=== PATIENT | male | born 1940 | race Caucasian/White ===

== ENCOUNTER 2017-07-12 19:59 | Emergency (ER) | payer MEDICAID, OTHER ==
[~2017-07-12] VITALS: Ht 172.7 cm; Wt 61.2 kg
[~2017-07-12 19:59] MED LIST: AMLO5TAB92 PO; CHOLESTEROL MED; GLYB5TAB7 PO
[2017-07-12 21:02] VITALS: BP_SYST 159
[2017-07-13 00:36] LABS: HEMATOCRIT 40.3 % (36-54); HEMOGLOBIN 13.4 g/dL (14.0-18.0); MEAN CORPUSCULAR HEMOGLOBIN 32 pg (27-31); MEAN CORPUSCULAR HGB CONC 33 % (32-36); MEAN CORPUSCULAR VOLUME 97 fL (79.0-98.0); PLATELET COUNT (AUTO) 178 K/uL (130-430); RED BLOOD CELL COUNT(AUTO) 4.14 MIL/uL (4.2-6.2); RED CELL DISTRIBUTION WIDTH 14.2 % (9.0-15.0); WHITE BLOOD COUNT (AUTO) 3.9 K/uL (4.8-10.8)
[2017-07-13 00:40] LABS: ANION GAP 6 (5-15); CALCIUM 8.9 mg/dL (8.4-11.0); CHLORIDE 103 mmol/L (98-107); CREATININE 1.32 mg/dL (0.55-1.30); GLUCOSE 115 mg/dL (70-99); POTASSIUM 4.3 mmol/L (3.5-5.1); SODIUM SERUM 138 mmol/L (136-145); UREA NITROGEN, BLOOD 21 mg/dL (8-21)
[2017-07-13 00:46] LABS: ALANINE AMINOTRANSFERASE 26 U/L (12-78); ALBUMIN 3.7 g/dL (3.4-4.8); ASPARTATE AMINOTRANSFERASE 37 U/L (10-37); TOTAL BILIRUBIN 0.7 mg/dL (0.0-1.0)
[2017-07-13 01:18] LABS: ATYPICAL LYMPHOCYTES % 0 % (0-0); BAND % (MANUAL) 0 % (0-6); BASOPHILS % (MANUAL) 0 % (0-2); EOSINOPHILS % (MANUAL) 17 % (0-7); LYMPHOCYTES % (MANUAL) 8 % (20-46); MONOCYTES % (MANUAL) 13 % (0-11)
[2017-07-13 01:33] LABS: ERYTHROCYTE SEDIMENTATION RATE 21 MM/HR (0-15)
[2017-07-13] MEDS ORDERED: cloNIDine HCL 0.1 MG TABLET PO ONE (02:30)
[2017-07-13] MEDS ORDERED: hydrALAZINE HCL 20 MG/ML VIAL IVP ONE (03:00)
[2017-07-13 03:24] VITALS: BP_SYST 140
== END 2017-07-13 03:25 | disposition home or self-care (01) ==
LOC: SED 19:59
DX: L12.0 Bullous pemphigoid (principal); L01.00 Impetigo, unspecified; E11.9 Type 2 diabetes mellitus without complications; I10 Essential (primary) hypertension; M06.9 Rheumatoid arthritis, unspecified; Z85.46 Personal history of malignant neoplasm of prostate
CPT/HCPCS: 36415; 73130; 80053; 83605; 85007; 85027; 85651; 87040; 96374; 99285; J0360

== ENCOUNTER 2018-06-19 20:38 | Emergency (ER) | payer OTHER ==
[~2018-06-19] VITALS: Ht 177.8 cm; Wt 63.5 kg
--- NOTE | 2018-06-19 20:45 | NUR ---
Patient to ER bed 4 to gown for evaluation. Side rails up. Report given to Kaycee MYERS.
--- NOTE | 2018-06-19 20:45 | NUR ---
Patient brought in by BLS to ED to be evaluated for numbness and tingling to bilateral lower extremities and mild pain, 3/10 that started this morning. No trauma or deformity noted. Patient A/O x 4. BP elevated @ 162/137. Patient denies chest pain, SOB, N&V. No distress noted. Will continue to monitor.
[2018-06-19 20:48] VITALS: BP_SYST 162
--- NOTE | 2018-06-19 20:50 | NUR ---
ER Dr. Mora at bedside examining patient.
[2018-06-19] MEDS ORDERED: ENALAPRILAT DIHYDRATE 1.25 MG/ML VIAL IVP ONE (21:00)
--- NOTE | 2018-06-19 21:40 | NUR ---
#20 gauge angiocath placed to RFA. Use of asceptic technique. Opsite placed over site. Blood return noted. Blood for lab drawn from site. Flushed with 10 cc of normal saline. No evidence of infiltration noted. Patient tolerated well. IV placed by Haseeb MYERS.
--- NOTE | 2018-06-19 21:43 | NUR ---
Patient VSS. Patient denies pain at this time. POC discussed with pt's daughter at bedside
[2018-06-19 21:59] LABS: EOSINOPHILS # (AUTO) 0.3 K/uL (0.0-0.4); HEMOGLOBIN 14.8 g/dL (14.0-18.0); MEAN CORPUSCULAR HEMOGLOBIN 33 pg (27-31); MEAN CORPUSCULAR HGB CONC 34 % (32-36); MEAN CORPUSCULAR VOLUME 96 fL (79.0-98.0); MONOCYTES # (AUTO) 0.5 K/uL (0.0-1.0)
[2018-06-19 22:02] LABS: BASOPHILS % (AUTO) 0.9 % (0.0-2.0); LYMPHOCYTES # (AUTO) 0.5 K/uL (1.0-5.5); LYMPHOCYTES % (AUTO) 11.9 % (20.5-51.5); MONOCYTES % (AUTO) 11.7 % (1.7-9.3); NEUTROPHILS % (AUTO) 68.5 % (40.0-70.0); PLATELET COUNT (AUTO) 196 K/uL (130-430); RED BLOOD CELL COUNT(AUTO) 4.46 MIL/uL (4.2-6.2); RED CELL DISTRIBUTION WIDTH 14.6 % (9.0-15.0); WHITE BLOOD COUNT (AUTO) 4.3 K/uL (4.8-10.8)
[2018-06-19 22:09] LABS: ANION GAP 8 (5-15); CHLORIDE 104 mmol/L (98-107); CREATININE 1.15 mg/dL (0.55-1.30); GLUCOSE 110 mg/dL (70-99); POTASSIUM 3.7 mmol/L (3.5-5.1); SODIUM SERUM 140 mmol/L (136-145); UREA NITROGEN, BLOOD 13 mg/dL (8-21)
[2018-06-19 22:15] LABS: ALANINE AMINOTRANSFERASE 19 U/L (12-78); ALBUMIN 3.7 g/dL (3.4-4.8); ASPARTATE AMINOTRANSFERASE 29 U/L (10-37); TOTAL BILIRUBIN 0.7 mg/dL (0.0-1.0)
--- NOTE | 2018-06-19 22:40 | NUR ---
ED Kwaw at bedside reassessing patient.
[2018-06-19 22:48] VITALS: BP_SYST 141
--- NOTE | 2018-06-19 22:48 | NUR ---
Patient given written and verbal discharge instructions and verbalizes understanding. ER MD discussed with patient the results and treatment provided. Patient in stable condition. ID arm band removed. IV catheter removed intact and dressing applied, no active bleeding. Rx of Norvasc given. Patient educated on pain management and to follow up with PMD. Pain Scale 2/10 tolerable. Opportunity for questions provided and answered. Medication side effect fact sheet provided.
== END 2018-06-19 22:48 | disposition home or self-care (01) ==
LOC: SED 20:38
DX: I10 Essential (primary) hypertension (principal); E11.9 Type 2 diabetes mellitus without complications; M06.9 Rheumatoid arthritis, unspecified; Z85.46 Personal history of malignant neoplasm of prostate; Z79.899 Other long term (current) drug therapy
CPT/HCPCS: 36415; 80053; 85025; 93005; 96374; 99285